=== PATIENT | male | born 1950 | race Caucasian/White ===

== ENCOUNTER 2017-01-15 16:10 | Observation (INO) | payer OTHER ==
[2017-01-15] MEDS ORDERED: NS 0.9% 1000 ML* 1,000 ML IV ONE (16:21)
[2017-01-15] MEDS ORDERED: Diltiazem IV* 5 MG/ML 5 ML VIAL (for loading dose/IV Push) (25 MG) IV SLOW PU ONE (16:29)
[2017-01-15] MEDS ORDERED: Diltiazem DRIP* 100 MG/100 ML ADDV.BAG IVPB ONE (16:29)
[2017-01-15 16:40] LABS: Hematocrit 50 % (42-52); Hemoglobin 16.7 g/dl (14.0-18.0); Mean Corpuscular HGB Conc 33 g/dl (31-36); Mean Corpuscular Hemoglobin 30 pg (27-31); Mean Corpuscular Volume 90 fL (80-94); Mean Platelet Volume 9 um3 (7.4-10.4); Red Blood Count 5.57 10^6/ul (4.0-5.4); Red Cell Distribution Width 14 % (10.5-15); White Blood Count 16.8 10^3/ul (3.5-10.8)
[2017-01-15 17:01] LABS: Troponin I 0.04 ng/mL (<0.04)
--- NOTE | 2017-01-15 17:02 | RAD ---
INDICATION: Increased heart rate COMPARISON: May 04, 2013 TECHNIQUE: An AP portable view obtained at 1641 hours is submitted. FINDINGS: Bones/Soft Tissues: There are no acute bony findings. Cardiomediastinal: The cardiomediastinal silhouette is mildly prominent. Lungs: The examination is mild expiratory. There are no focal infiltrates. The left lung base is not well evaluated due to the size of the cardiac silhouette. Pleura: There are no pleural effusions. Other: None IMPRESSION: NO ACTIVE DISEASE. SUGGEST FOLLOW-UP PA AND LATERAL VIEWS CLINICALLY INDICATED
--- NOTE | 2017-01-15 17:11 | RAD ---
INDICATION: Intracranial injury COMPARISON: May 04, 2013 TECHNIQUE: Noncontrast axial source images were acquired from the skull base to the vertex. FINDINGS: Ventricles/sulci: The ventricles and cisterns are normal in size and configuration for age. Brain parenchyma: There is no focal parenchymal finding, evidence of intracranial mass, or intracranial mass effect. Intracranial hemorrhage:None. Extra-axial spaces: There are no abnormal extra axial fluid collections or evidence of extra-axial mass. Calvarium: There is no calvarial fracture or other calvarial abnormality. Scalp: There is no evidence of scalp or extracalvarial soft tissue abnormality. Paranasal sinuses/mastoid: The paranasal sinuses and mastoid air cells are clear. Other: The bilateral basal ganglia consultations, unchanged. There are vertebral artery calcifications.. IMPRESSION: NO ACUTE INTRACRANIAL FINDINGS
[2017-01-15 17:14] LABS: Albumin 3.9 g/dL (3.2-5.2); BUN/Creatinine Ratio 13.2 (8-20); C Reactive Protein 210.95 mg/L (< 5.00); Calcium 10.4 mg/dL (8.6-10.3); EGFR African American 47.9 (>60); EGFR Non-African American 37.2 (>60); Globulin 4.4 g/dL (2-4); Potassium 4.2 mmol/L (3.5-5.0); Total Bilirubin 1.6 mg/dL (0.2-1.0); Total Protein 8.3 g/dL (6.4-8.9)
[2017-01-15] MEDS ORDERED: cefTRIAXone(*) 1 GM in NS 0.9% 50 ML* 50 ML IVPB ONE (18:25)
[2017-01-15] MEDS ORDERED: NS 0.9% 1000 ML* 2,000 ML IV ONE (18:26)
[2017-01-15] MEDS ORDERED: Ondansetron INJ* 2 MG/ML VIAL IV PRN (18:34)
[2017-01-15] MEDS ORDERED: Ipratropium 0.5MG/2.5ML NEB* 0.5 MG/2.5 ML NEB.SOLN INH PRN (18:40)
--- NOTE | 2017-01-15 18:57 | ED ---
Elio Mccall Erika, scribed for Mazin Lowe MD on 01/15/17 at 1629 . Complex/Multi-Sys Presentation - HPI Summary HPI Summary: Patient is a 66-year-old male BIBA to the ED with a CC of weakness. Patient reports that he fell in his driveway 2 hours ago while trying to get the mail. He denies dizziness, LOC, and head injury. He does note an abrasion to the left knee. Patient was unable to get his balance on the stones, and states he was feeling weak. Pt was unable to get up for 1.5 hours, and was lying outside in shorts and a T shirt. Patient states he has had weakness for the past few days. He also reports flexor tendonitis in the left foot intermittently. EMS warmed patient with heating packs to the groin, and report stable vitals en route but with A Fib in the 120s-130s - patient has a Hx A Fib. Currently, patient denies any pain, including chest pain and headache, and denies SOB and dizziness. Patient does report a fever and diarrhea for the past 2-3 days. He denies sore throat, nasal discharge, and hematuria. Patient denies recent travel or Abx use , and states no household exposure to illness. Hx HTN. PSHx left foot tendon surgery, knee surgeries. Patient reports his last tetanus was 2 years ago. FHx HTN. Patient occasionally drinks, and does not smoke or use illicit drugs. - History Of Current Complaint Time Seen by Provider: 01/15/17 16:11 Hx Obtained From: Patient, EMS Onset/Duration: Gradual Onset, Lasting Days, Still Present Timing: Constant Severity Currently: Moderate Alleviating Factor(s): Nothing Associated Signs And Symptoms: Positive: Weakness, Diarrhea, Fever, Other - Abrasion L knee. Negative: Dizziness, Headache, SOB, Chest Pain - Allergies/Home Medications Allergies/Adverse Reactions: Allergies Allergy/AdvReac Type Severity Reaction Status Date / Time No Known Allergies Allergy Verified 01/15/17 17:44 Home Medications: Home Medications Lisinopril [Lisinopril] 20 mg PO DAILY 01/15/17 [History Confirmed 01/15/17] Metoprolol Succinate XL TAB* [Toprol XL TAB*] 200 mg PO DAILY 01/15/17 [History Confirmed 03/06/17] PMH/Surg Hx/FS Hx/Imm Hx Endocrine/Hematology History: Reports: Hx Anticoagulant Therapy - pradaxa 150mg bid Cardiovascular History: Reports: Hx Hypertension Musculoskeletal History: Reports: Hx Arthritis Sensory History: Reports: Hx Contacts or Glasses Opthamlomology History: Reports: Hx Contacts or Glasses - Surgical History Surgery Procedure, Year, and Place: knee surgeries - Family History Known Family History: Positive: Hypertension - Social History Lives: With Family Alcohol Use: Occasionally Hx Substance Use: No Substance Use Type: Reports: None Hx Tobacco Use: No Smoking Status (MU): Never Smoked Tobacco Review of Systems Positive: Fever Negative: Sore Throat, Nasal Discharge Negative: Chest Pain Negative: Shortness Of Breath Positive: Diarrhea Negative: hematuria Negative: Arthralgia, Myalgia Skin: Other - abrasion L knee Positive: Weakness. Negative: Headache, Syncope All Other Systems Reviewed And Are Negative: Yes Physical Exam - Summary Physical Exam Summary: VITAL SIGNS: Reviewed. GENERAL: Patient is a well developed and nourished male who is lying comfortable in the stretcher. Patient is not in any acute respiratory distress. HEAD AND FACE: No signs of trauma. No ecchymosis, hematomas or skull depressions. No sinus tenderness. EYES: PERRLA, EOMI x 2, No injected conjunctiva, no nystagmus. No photophobia. EARS: Hearing grossly intact. Ear canals and tympanic membranes are within normal limits. MOUTH: Oropharynx within normal limits. NECK: Supple, trachea is midline, no adenopathy, no JVD, no carotid bruit, no c- spine tenderness, neck with full ROM. No meningeal signs, no Kernig's or brudzinskis signs. CHEST: Symmetric, no tenderness at palpation LUNGS: Clear to auscultation bilaterally. No wheezing or crackles. CVS: Regular rate and rhythm, S1 and S2 present, no murmurs or gallops appreciated. ABDOMEN: Soft, non-tender. No signs of distention. No rebound no guarding, and no masses palpated. Bowel sounds are normal. EXTREMITIES: FROM in all major joints, no edema, no cyanosis or clubbing. Lump in left foot. NEURO: Alert and oriented x 3. No acute neurological deficits. Speech is normal and follows commands. SKIN: Dry and warm Triage Information Reviewed: Yes Vital Signs On Initial Exam: Initial Vital Signs Temp 98.1 F 01/15/17 16:18 Pulse 138 01/15/17 16:18 Resp 20 01/15/17 16:18 BP 148/76 01/15/17 16:18 Pulse Ox 94 01/15/17 16:18 Vital Signs Reviewed: Yes Diagnostics - Vital Signs Vital Signs Temp Pulse Resp BP Pulse Ox 01/15/17 17:15 93 22 103/60 91 01/15/17 17:06 84 25 92 01/15/17 17:05 114/72 01/15/17 16:50 108 29 130/73 92 01/15/17 16:45 101 27 131/92 92 01/15/17 16:43 111 24 128/72 93 01/15/17 16:42 114 22 130/89 93 01/15/17 16:39 96 32 119/83 89 01/15/17 16:38 101 30 92 01/15/17 16:18 98.1 F 138 20 148/76 94 - Laboratory Lab Results: Lab Results 01/15/17 01/15/17 01/15/17 Range/Units 16:25 16:25 16:25 WBC 16.8 H (3.5-10.8) 10^3/ul RBC 5.57 H (4.0-5.4) 10^6/ul Hgb 16.7 (14.0-18.0) g/dl Hct 50 (42-52) % MCV 90 (80-94) fL MCH 30 (27-31) pg MCHC 33 (31-36) g/dl RDW 14 (10.5-15) % Plt Count 381 (150-450) 10^3/ul MPV 9 (7.4-10.4) um3 Neut % (Auto) 86.5 H (38-83) % Lymph % (Auto) 8.6 L (25-47) % [place] % (Auto) 4.4 (1-9) % Eos % (Auto) 0.3 (0-6) % Baso % (Auto) 0.2 (0-2) % Absolute Neuts (auto) 14.6 H (1.5-7.7) 10^3/ul Absolute Lymphs (auto) 1.5 (1.0-4.8) 10^3/ul Absolute Monos (auto) 0.7 (0-0.8) 10^3/ul Absolute Eos (auto) 0.1 (0-0.6) 10^3/ul Absolute Basos (auto) 0 (0-0.2) 10^3/ul Absolute Nucleated RBC 0 10^3/ul Nucleated RBC % 0 Sodium 131 L (133-145) mmol/L Potassium 4.2 (3.5-5.0) mmol/L Chloride 100 L (101-111) mmol/L Carbon Dioxide 16 L (22-32) mmol/L Anion Gap 15 H (2-11) mmol/L BUN 24 (6-24) mg/dL Creatinine 1.82 H (0.67-1.17) mg/dL Est GFR ( Amer) 47.9 (>60) Est GFR (Non-Af Amer) 37.2 (>60) BUN/Creatinine Ratio 13.2 (8-20) Glucose 172 H (70-100) mg/dL Lactic Acid 7.6 H* (0.5-2.0) mmol/L Calcium 10.4 H (8.6-10.3) mg/dL Total Bilirubin 1.60 H (0.2-1.0) mg/dL AST 28 (13-39) U/L ALT 25 (7-52) U/L Alkaline Phosphatase 65 (34-104) U/L Total Creatine Kinase 248 H (10-223) U/L Troponin I 0.04 H* (<0.04) ng/mL C-Reactive Protein 210.95 H (< 5.00) mg/L B-Natriuretic Peptide ( - 100) pg/mL Total Protein 8.3 (6.4-8.9) g/dL Albumin 3.9 (3.2-5.2) g/dL Globulin 4.4 H (2-4) g/dL Albumin/Globulin Ratio 0.9 L (1-3) Amylase 58 (29-103) U/L Lipase 37 (11.0-82.0) U/L // Range/Units 16:25 WBC (3.5-10.8) 10^3/ul RBC (4.0-5.4) 10^6/ul Hgb (14.0-18.0) g/dl Hct (42-52) % MCV (80-94) fL MCH (27-31) pg MCHC (31-36) g/dl RDW (10.5-15) % Plt Count (150-450) 10^3/ul MPV (7.4-10.4) um3 Neut % (Auto) (38-83) % Lymph % (Auto) (25-47) % [place] % (Auto) (1-9) % Eos % (Auto) (0-6) % Baso % (Auto) (0-2) % Absolute Neuts (auto) (1.5-7.7) 10^3/ul Absolute Lymphs (auto) (1.0-4.8) 10^3/ul Absolute Monos (auto) (0-0.8) 10^3/ul Absolute Eos (auto) (0-0.6) 10^3/ul Absolute Basos (auto) (0-0.2) 10^3/ul Absolute Nucleated RBC 10^3/ul Nucleated RBC % Sodium (133-145) mmol/L Potassium (3.5-5.0) mmol/L Chloride (101-111) mmol/L Carbon Dioxide (22-32) mmol/L Anion Gap (2-11) mmol/L BUN (6-24) mg/dL Creatinine (0.67-1.17) mg/dL Est GFR ( Amer) (>60) Est GFR (Non-Af Amer) (>60) BUN/Creatinine Ratio (8-20) Glucose (70-100) mg/dL Lactic Acid (0.5-2.0) mmol/L Calcium (8.6-10.3) mg/dL Total Bilirubin (0.2-1.0) mg/dL AST (13-39) U/L ALT (7-52) U/L Alkaline Phosphatase (34-104) U/L Total Creatine Kinase (10-223) U/L Troponin I (<0.04) ng/mL C-Reactive Protein (< 5.00) mg/L B-Natriuretic Peptide 237 H ( - 100) pg/mL Total Protein (6.4-8.9) g/dL Albumin (3.2-5.2) g/dL Globulin (2-4) g/dL Albumin/Globulin Ratio (1-3) Amylase (29-103) U/L Lipase (11.0-82.0) U/L Result Diagrams: 01/15/17 16:25 01/15/17 16:25 Lab Statement: Any lab studies that have been ordered have been reviewed, and results considered in the medical decision making process. - Radiology CXR Radiology Interpretation Completed By: Radiologist - IMPRESSION: NO ACTIVE DISEASE. SUGGEST FOLLOW-UP PA AND LATERAL VIEWS CLINICALLY INDICATED - CT CT Brain CT Interpretation Completed By: Radiologist - IMPRESSION: NO ACUTE INTRACRANIAL FINDINGS - EKG 16:18 Cardiac Rate: Tachycardia - at 157 bpm EKG Rhythm: Atrial Fibrillation - with RVR Complex Multi-Symp Course/Dx Assessment/Plan: Patient is a 66-year-old male BIBA to the ED with a CC of weakness. Patient reports that he fell in his driveway 2 hours ago while trying to get the mail. He denies dizziness, LOC, and head injury. He does note an abrasion to the left knee. Patient was unable to get his balance on the stones, and states he was feeling weak. Pt was unable to get up for 1.5 hours, and was lying outside in shorts and a T shirt. Patient states he has had weakness for the past few days. He also reports flexor tendonitis in the left foot intermittently. EMS warmed patient with heating packs to the groin, and report stable vitals en route but with A Fib in the 120s-130s - patient has a Hx A Fib. Currently, patient denies any pain, including chest pain and headache, and denies SOB and dizziness. Patient does report a fever and diarrhea for the past 2-3 days. He denies sore throat, nasal discharge, and hematuria. Patient denies recent travel or Abx use, and states no household exposure to illness. Hx HTN. PSHx left foot tendon surgery, knee surgeries. Patient reports his last tetanus was 2 years ago. FHx HTN. Patient occasionally drinks, and does not smoke or use illicit drugs. BW WNL except for WBC of 16.8 without any bands. Sodium 131, chloride 100, CO2 16, anion gap 15, creatinine 1.82, glucose 172, lactic acid 7.6, calcium of 10.4, creatine kinase of 248, troponin of 0.04, CRP of 210, and BNP 237. Head CT shows no acute intracranial pathology. CXR shows no active disease. In the ED course, the pt is A&Ox3, he does not have any complaints, however we noticed that HR was elevated at 157. EKG shows A Fib with RVR for which the pt was given cardiazem 20 mg IV. His pulse rate is fluctuating between 90-107. The pt continues to be asymptomatic. The pt also was hydrated since the pt has been having watery diarrhea for the last couple. I ordered C diff, stool culture, and fecal leukocytes, however the pt was not able to give a stool sample. At this point the pt is more hemodynamically stable; he continues to be A&Ox3. I discussed by PE and findings with Dr. Rivera who came and assessed the pt and he accepted for admission to his services. - Diagnoses Differential Diagnoses/HQI/PQRI: Cardiac Ischemia, Closed Cranial Trauma, CVA, Urinary Tract Infection, Other - Gastroenteritis, arrythmia. Provider Diagnoses: Atrial fibrillation with RVR, Diarrhea, increase troponin r/o NSTEMI, Renal insufficiency - Physician Notifications Discussed Care Of Patient With: Dr. Rivera (hospitalist) at 17:39 - agrees to admit Discharge - Discharge Plan Condition: Stable Disposition: ADMITTED TO [facility] Referrals: Ariadne North MD [Primary Care Provider] - The documentation as recorded by the Elio rivero Erika accurately reflects the service I personally performed and the decisions made by , Mazin Lowe MD.
--- NOTE | 2017-01-15 21:21 | HP ---
ADMISSION HISTORY AND PHYSICAL: DATE OF ADMISSION: PRIMARY CARE PROVIDER: Dr. North. HEATER WORKER: Dr. Reyes. HEALTHCARE PROXY: His , Francine Silver. CODE STATUS: Full. SOURCE OF INFORMATION: History obtained from interview with the patient, review of past medical records, review of Dr. Reyes's records, review of EMS records. RELIABILITY: Good. CHIEF COMPLAINT: Fall and inability to stand. HISTORY OF PRESENT ILLNESS: This is a 66-year-old man with past medical history of chronic atrial fibrillation, hypertension, hyperlipidemia, and obesity, who had been in his usual state of health until approximately 4 days prior, started to notice left foot pain, which is typical of previous episodes. He was not taking any increased NSAIDs or Tylenol for any of this pain. Three days prior to presentation, he started to notice watery diarrhea, which was approximately 2 to 3 times per day. He started eating and drinking less. He noticed no blood or mucus or dark black stools. No episode of incontinence. No nausea, vomiting, or abdominal pain. He noticed associated subjective fevers over the preceding 3 days, not associated with chills or night sweats. The night prior to admission, he did get up overnight 2 times to use the bathroom with liquidy stool. Over the same period of time, 3 days, he has had cough with scant sputum, but no associated rhinorrhea, sore throat, sick contacts, or travel. Today, he walked outside in the slippers to get the mail and had a fall on his gravel driveway. He does not remember any bethanie trip although thought his feet might have gone out from under him. He did not have any preceding lightheadedness, chest pain, shortness of breath, loss of consciousness, or head strike. He is unable to stand, which he said is unusual for him, although not completely unusual when he has this pain in the left foot. He was down for approximately 1-1/2 hours before his neighbors found him and activated the EMS. EMS noted cold exposure and the patient was confused, A and O x2, not reporting pain but having labored respirations. His blood pressure in the field was 128/80 with a heart rate of 136 and noted to have cold skin. The patient denies noting palpitations when he goes into rapid ventricular response. On presentation to the emergency room, his temperature was 98.1 with a heart rate of 112, although 157 noted on admission EKG. He received 20 mg of IV Cardizem, a liter of normal saline with control of his heart rate, and the hospitalist service was consulted for admission. In addition to the above, the patient notes a 36-pound weight loss over the last 6 weeks intentionally with diet. PAST MEDICAL HISTORY: Includes chronic atrial fibrillation, hypertension, arthritis, hyperlipidemia, obesity, possible TIA in the past in the setting of slurred speech while drinking alcohol. PAST SURGICAL HISTORY: Tonsillectomy, cyst removed from maxillary region under his jaw. MEDICATIONS: 1. Pradaxa 150 mg twice daily. 2. Metoprolol 200 mg XL daily confirmed with Dr. Reyes's records. 3. Lisinopril 20 mg daily, although records seem to indicate he may have been increased from 20 daily to 20 in the morning and 10 at night. The patient indicates he is only taking 20 mg daily. ALLERGIES: No known drug allergies. FAMILY HISTORY: Father at 90. Mother lives at 96. SOCIAL HISTORY: Two packs a day cigarettes for 3 years, quit 30 years prior. Drinks 2 alcoholic beverages per day, sometimes more on the weekend, had nothing to drink today. No illicits. He is retired, previously self employed. Has 1 cup of coffee per day, none today. He exercises, walking his dogs several miles per day and also on a stationary bike. REVIEW OF SYSTEMS: As per HPI, otherwise all other systems negative. PHYSICAL EXAMINATION GENERAL: Obese man, sitting up in bed, interactive and pleasant, in no apparent distress. VITAL SIGNS: When seen by this author, 120/77, heart rate 90, respiratory rate 18, 93% on room, T-max in the emergency room 98.1. HEENT: Oropharynx is clear. He has moist mucous membranes. He has poor dentition. LUNGS: Symmetric airway expansion with wheeze in his upper lobes. CARDIAC: He has a tachycardic rate with an irregularly irregular rhythm. ABDOMEN: Obese, soft, nontender, nondistended with positive bowel sounds. No rebound or guarding. EXTREMITIES: Warm and well perfused. 2+ peripheral pulses. Less than 2- second cap refill. Good skin turgor. No clubbing, cyanosis, or edema. Abrasion and laceration under left knee. NEUROLOGIC: He is alert and oriented x3. His cranial nerves II through XII are intact. 5/5 strength throughout. Gait not assessed. No apparent anxiety, agitation, or depression. DIAGNOSTIC STUDIES/LAB DATA: Labs reviewed, notable for sodium 131, potassium 4.2, chloride of 100, bicarbonate 16 with an anion gap of 15, BUN 24, creatinine 1.82, glucose 172, lactic acid 7.6, calcium 10.4. Bilirubin 1.6. Total CK 248, troponin 0.04. CRP 210. BNP 237. White blood cell count is 16.8 , which is 86.5% neutrophils, hemoglobin 16.7, platelets 381. Data reviewed. Chest x-ray, impression: No active disease. Followup PA and lateral suggested if clinically indicated. Brain CT, impression: No acute intracranial findings. EKG, impression: Atrial fibrillation and ventricular response at 107 beats per minute, left axis, possibly prolonged QTc at 498, although difficult to calculate on this EKG. He has late R-wave progression, no and voltage in limb leads. No ST or T-wave changes. ASSESSMENT AND PLAN: This is a 66-year-old man with past medical history of atrial fibrillation, on Pradaxa and presenting to the hospital after fall in his driveway, inability to stand with exposure to cold temperature for approximately 1.5 hours, found in the emergency room with atrial fibrillation with rapid ventricular response as well as laboratory abnormalities including leukocytosis and lactic acidosis. 1. Atrial fibrillation with rapid ventricular response with rate control after addition of 20 IV Cardizem. Heart rate is now running 90s to 100s. I will add metoprolol 25 mg q.6 hours and continue his metoprolol XL in the morning at 200 with a goal of increasing his total daily dose of metoprolol if blood pressure and heart rate tolerate. Max total daily dose of metoprolol is 400 mg per day. 2. Lactic acidosis. Multiple etiologies are possible including cold exposure with potentially shivering or in the setting of atrial fibrillation appear to favor cold exposure with such high levels. The patient denies any alcohol intoxication. However, it should be noted elevated leukocytosis and CRP with some concerns of underlying infection although none elucidated at the time of my interview or exam. We will repeat lactic acid now, give 2 additional liters of normal saline as a fluid bolus, and 1 dose of ceftriaxone empirically at this time. 3. Leukocytosis in the setting of tachycardia and lactic acidosis as a concern for sepsis. We will treat with ceftriaxone at this time. Urine is still pending. C. diff result is still pending in the setting of recent diarrhea, although frequency of diarrhea would argue against C. diff colitis. A positive result would be interpreted as reliable. Fluid as indicated above for lactic acidosis. 4. Increased troponin. Suspect demand in the setting of atrial fibrillation with rapid ventricular response. Repeat troponin now. Stress test in [address] Reyes was normal. 5. Acute kidney injury, last known was 1.2 in 2014. Total CK argues against rhabdomyolysis in the setting of cold exposure. The patient notes diarrhea with decreased p.o. intake over the last several days suggesting prerenal etiology. Two additional liters now, continue to trend tomorrow. 6. Diarrhea. Most common etiology is viral gastroenteritis leading to dehydration, weakness, fall, and atrial fibrillation with rapid ventricular response. Check C. diff and fecal lactoferrin. Hold off on treating stool unless C. diff positive. 7. Elevated blood glucose. Add on hemoglobin A1c to ED labs. 8. Wheeze on exam. Add ipratropium medications, not currently in any respiratory distress. We will also add on overnight pulse oximetry given patient's weight and potential for obstructive sleep apnea. 9. DVT prophylaxis. Pradaxa. 10. Code status is full. CC: Dr. North; Dr. Reyes * [id number]/[facility] #: [id number] [facility]
[2017-01-15] MEDS: Metoprolol Tartrate TAB* 25 MG PO SCH (22:19)
[2017-01-15] MEDS: CMCS: Dabigatran CAP(NF) 150 MG CAP PO SCH (22:19)
[2017-01-16] MEDS: Metoprolol Tartrate TAB* 25 MG PO SCH ×2 (01:42→10:00)
[2017-01-16 04:58] LABS: Hematocrit 43 % (42-52); Hemoglobin 14.4 g/dl (14.0-18.0); Mean Corpuscular HGB Conc 33 g/dl (31-36); Mean Corpuscular Hemoglobin 30 pg (27-31); Mean Corpuscular Volume 90 fL (80-94); Mean Platelet Volume 9 um3 (7.4-10.4); Red Blood Count 4.81 10^6/ul (4.0-5.4); Red Cell Distribution Width 14 % (10.5-15); White Blood Count 16.9 10^3/ul (3.5-10.8)
[2017-01-16 05:00] LABS: Add Diff/Slide Review? Slide Review Added; Comments Flag Yes
[2017-01-16 05:10] LABS: BUN/Creatinine Ratio 19.3 (8-20); Calcium 9.2 mg/dL (8.6-10.3); EGFR African American 67.6 (>60); EGFR Non-African American 52.6 (>60)
[2017-01-16] MEDS ORDERED: Pneumococcal *Vac Polyvalent 0.5 ML VIAL IM ONE (09:00)
[2017-01-16] MEDS: CMCS: Dabigatran CAP(NF) 150 MG CAP PO SCH ×2 (10:00→19:51)
[2017-01-16] MEDS: Metoprolol Succinate XL TAB* 200 MG TAB.XL PO SCH (10:01)
[2017-01-16] MEDS: Lisinopril TAB* 10 MG PO SCH (10:01)
[2017-01-16 11:02] LABS: Urine Bacteria Absent (Absent); Urine Bilirubin Negative (Negative); Urine Glucose Negative (Negative); Urine Nitrite Negative (Negative)
[2017-01-16] MEDS: Acetaminophen TAB* 325 MG PO PRN ×2 (11:11→19:52)
[2017-01-16] MEDS ORDERED: NS 0.9% 1000 ML* 1,000 ML IV SCH (13:30)
--- NOTE | 2017-01-16 14:13 | RAD ---
INDICATION: Left wrist injury COMPARISON: None TECHNIQUE: AP, lateral, and oblique views were obtained. FINDINGS: There is no acute fracture. There is advanced osteoarthritis about the radiocarpal joint/radial styloid. There is mild cystic change of multiple carpal bones. There is mild diffuse soft tissue swelling IMPRESSION: OSTEOARTHRITIS. NO ACUTE FINDINGS.
--- NOTE | 2017-01-16 14:29 | RAD ---
INDICATION: Abdominal pain COMPARISON: None TECHNIQUE: Erect and supine views of the abdomen are submitted. FINDINGS: Bones: There are no acute bony findings. Soft tissues: The soft tissues appear normal. The psoas margins are sharp. Bowel gas pattern: Nonspecific. Calcifications: There are no abnormal calcifications. Other: None IMPRESSION: NONSPECIFIC BOWEL GAS PATTERN. SUGGEST FOLLOW-UP INDICATED
--- NOTE | 2017-01-16 14:50 | PN ---
Subjective Date of Service: 01/16/17 Interval History: Left wrist in pain and swollen Watery diarrhea continues. Denies N/V or abdominal pain. Appetite still good. Strength feels 50% back to normal +cough Objective Active Medications: Acetaminophen (Tylenol Tab*) 650 mg PO Q4H PRN PRN Reason: FEVER/PAIN Last Admin: 01/16/17 11:11 Dose: 650 mg Dabigatran (Pradaxa Cap(Nf)) 150 mg PO BID [facility] Last Admin: 01/16/17 10:00 Dose: 150 mg Sodium Chloride (Ns 0.9% 1000 Ml*) 1,000 mls @ 125 mls/hr IV PER RATE [facility] Stop: 01/16/17 21:29 Last Admin: 01/16/17 14:37 Dose: 125 mls/hr Ipratropium [place] (Atrovent 0.5 Mg Neb.Danyell*) 0.5 mg INH Q4H PRN PRN Reason: SOB/WHEEZING Lisinopril (Prinivil Tab*) 20 mg PO DAILY [facility] Last Admin: 01/16/17 10:01 Dose: 20 mg Metoprolol Succinate (Toprol Xl Tab*) 200 mg PO DAILY [facility] Last Admin: 01/16/17 10:01 Dose: 200 mg Ondansetron HCl (Zofran Inj*) 4 mg IV Q4H PRN PRN Reason: NAUSEA/VOMITING Vital Signs 01/15/17 01/15/17 01/15/17 18:45 18:59 19:00 Temperature Pulse Rate 103 96 68 Respiratory 24 25 Rate Blood Pressure 114/62 119/78 (mmHg) O2 Sat by Pulse 94 92 94 Oximetry 01/15/17 01/15/17 01/15/17 19:15 19:22 19:38 Temperature Pulse Rate 105 Respiratory 25 21 Rate Blood Pressure 104/68 169/76 (mmHg) O2 Sat by Pulse 94 Oximetry 01/15/17 01/15/17 01/15/17 19:45 19:54 20:00 Temperature 97.4 F Pulse Rate 92 64 Respiratory Rate Blood Pressure 145/79 113/66 (mmHg) O2 Sat by Pulse 96 100 Oximetry 01/15/17 01/15/17 01/15/17 21:00 21:19 23:28 Temperature 98.5 F Pulse Rate 87 Respiratory 17 Rate Blood Pressure 148/76 115/75 (mmHg) O2 Sat by Pulse 95 Oximetry 01/16/17 01/16/17 01/16/17 00:00 01:42 02:43 Temperature 97.4 F Pulse Rate 151 85 92 Respiratory 16 Rate Blood Pressure 136/79 113/66 (mmHg) O2 Sat by Pulse 93 96 Oximetry 01/16/17 01/16/17 01/16/17 03:44 05:13 07:43 Temperature 98.2 F 97.6 F Pulse Rate 45 49 80 Respiratory 18 16 Rate Blood Pressure 115/72 104/76 (mmHg) O2 Sat by Pulse 98 90 99 Oximetry 01/16/17 09:12 Temperature Pulse Rate 82 Respiratory 16 Rate Blood Pressure (mmHg) O2 Sat by Pulse 93 Oximetry Oxygen Devices in Use Now: None Appearance: obese, sitting in chair, NAD Eyes: No Scleral Icterus, PERRLA Ears/Nose/Mouth/Throat: NL Teeth, Lips, Gums, Clear Oropharnyx Neck: NL Appearance and Movements; NL JVP, Trachea Midline Respiratory: Symmetrical Chest Expansion and Respiratory Effort, Clear to Auscultation Cardiovascular: NL Sounds; No Murmurs; No JVD, RRR Abdominal: - - soft, +bs, distended, NTTP Lymphatic: No Cervical Adenopathy Extremities: No Edema, No Clubbing, Cyanosis, - - left hand swollen, tenderness lateral towards ulnar Skin: No Rash or Ulcers Neurological: Alert and Oriented x 3 Result Diagrams: 01/16/17 04:25 01/16/17 04:25 Additional Lab and Data: Lab Results 01/15/17 01/15/17 01/15/17 Range/Units 16:25 16:25 16:25 WBC 16.8 H (3.5-10.8) 10^3/ul RBC 5.57 H (4.0-5.4) 10^6/ul Hgb 16.7 (14.0-18.0) g/dl Hct 50 (42-52) % MCV 90 (80-94) fL MCH 30 (27-31) pg MCHC 33 (31-36) g/dl RDW 14 (10.5-15) % Plt Count 381 (150-450) 10^3/ul MPV 9 (7.4-10.4) um3 Neut % (Auto) 86.5 H (38-83) % Lymph % (Auto) 8.6 L (25-47) % [place] % (Auto) 4.4 (1-9) % Eos % (Auto) 0.3 (0-6) % Baso % (Auto) 0.2 (0-2) % Absolute Neuts (auto) 14.6 H (1.5-7.7) 10^3/ul Absolute Lymphs (auto) 1.5 (1.0-4.8) 10^3/ul Absolute Monos (auto) 0.7 (0-0.8) 10^3/ul Absolute Eos (auto) 0.1 (0-0.6) 10^3/ul Absolute Basos (auto) 0 (0-0.2) 10^3/ul Absolute Nucleated RBC 0 10^3/ul Nucleated RBC % 0 Sodium 131 L (133-145) mmol/L Potassium 4.2 (3.5-5.0) mmol/L Chloride 100 L (101-111) mmol/L Carbon Dioxide 16 L (22-32) mmol/L Anion Gap 15 H (2-11) mmol/L BUN 24 (6-24) mg/dL Creatinine 1.82 H (0.67-1.17) mg/dL Est GFR ( Amer) 47.9 (>60) Est GFR (Non-Af Amer) 37.2 (>60) BUN/Creatinine Ratio 13.2 (8-20) Glucose 172 H (70-100) mg/dL Lactic Acid 7.6 H* (0.5-2.0) mmol/L Calcium 10.4 H (8.6-10.3) mg/dL Total Bilirubin 1.60 H (0.2-1.0) mg/dL AST 28 (13-39) U/L ALT 25 (7-52) U/L Alkaline Phosphatase 65 (34-104) U/L Total Creatine Kinase 248 H (10-223) U/L Troponin I 0.04 H* (<0.04) ng/mL C-Reactive Protein 210.95 H (< 5.00) mg/L B-Natriuretic Peptide ( - 100) pg/mL Total Protein 8.3 (6.4-8.9) g/dL Albumin 3.9 (3.2-5.2) g/dL Globulin 4.4 H (2-4) g/dL Albumin/Globulin Ratio 0.9 L (1-3) Amylase 58 (29-103) U/L Lipase 37 (11.0-82.0) U/L 01/15/17 Range/Units 16:25 WBC (3.5-10.8) 10^3/ul RBC (4.0-5.4) 10^6/ul Hgb (14.0-18.0) g/dl Hct (42-52) % MCV (80-94) fL MCH (27-31) pg MCHC (31-36) g/dl RDW (10.5-15) % Plt Count (150-450) 10^3/ul MPV (7.4-10.4) um3 Neut % (Auto) (38-83) % Lymph % (Auto) (25-47) % [place] % (Auto) (1-9) % Eos % (Auto) (0-6) % Baso % (Auto) (0-2) % Absolute Neuts (auto) (1.5-7.7) 10^3/ul Absolute Lymphs (auto) (1.0-4.8) 10^3/ul Absolute Monos (auto) (0-0.8) 10^3/ul Absolute Eos (auto) (0-0.6) 10^3/ul Absolute Basos (auto) (0-0.2) 10^3/ul Absolute Nucleated RBC 10^3/ul Nucleated RBC % Sodium (133-145) mmol/L Potassium (3.5-5.0) mmol/L Chloride (101-111) mmol/L Carbon Dioxide (22-32) mmol/L Anion Gap (2-11) mmol/L BUN (6-24) mg/dL Creatinine (0.67-1.17) mg/dL Est GFR ( Amer) (>60) Est GFR (Non-Af Amer) (>60) BUN/Creatinine Ratio (8-20) Glucose (70-100) mg/dL Lactic Acid (0.5-2.0) mmol/L Calcium (8.6-10.3) mg/dL Total Bilirubin (0.2-1.0) mg/dL AST (13-39) U/L ALT (7-52) U/L Alkaline Phosphatase (34-104) U/L Total Creatine Kinase (10-223) U/L Troponin I (<0.04) ng/mL C-Reactive Protein (< 5.00) mg/L B-Natriuretic Peptide 237 H ( - 100) pg/mL Total Protein (6.4-8.9) g/dL Albumin (3.2-5.2) g/dL Globulin (2-4) g/dL Albumin/Globulin Ratio (1-3) Amylase (29-103) U/L Lipase (11.0-82.0) U/L Microbiology and Other Data: Microbiology 01/16/17 10:10 Influenza Types A,B Antigen (NADYA) - Final Nasopharyngeal Specimen received for Influenza A/B Molecular testing Assess/Plan/Problems-Billing Assessment: 66 yo M p/w fall and inability to get up in his driveway found with lactic acidosis that resolved quickly, afib RVR, and leukocytosis with stay complicated by pain in left wrist and continued diarrhea - Patient Problems (1) Leukocytosis Comment: 1 dose CTX in ED and hold abx since that time WBC remains elevated. ?In setting of left wrist inflammation (injury vs gout?) vs continued diarrhea vs other process. Check stool for giardia (home uses well water) Monitor overnight and await final negative cultures (2) Wrist pain Comment: No fracture Injury from fall vs gout. Does note he has had pain in MTPs in past but pain was not extreme Check uric acid in AM Can consider colchicine on discharge. Doubt septic joint, no erythema, no fevers, minimal swelling (3) ESSIE (acute kidney injury) Comment: Improving additional liter NS today recheck tomorrow (4) Atrial fibrillation with RVR Comment: rate controlled c/w home dose 200mg metoprolol/day Pradaxa (5) Hypertension Comment: metoprolol and lisinopril (6) DVT prophylaxis Comment: Pradaxa
[2017-01-17 05:41] LABS: Hematocrit 41 % (42-52); Hemoglobin 13.3 g/dl (14.0-18.0); Mean Corpuscular HGB Conc 33 g/dl (31-36); Mean Corpuscular Hemoglobin 29 pg (27-31); Mean Corpuscular Volume 90 fL (80-94); Mean Platelet Volume 9 um3 (7.4-10.4); Red Blood Count 4.52 10^6/ul (4.0-5.4); Red Cell Distribution Width 14 % (10.5-15); White Blood Count 11.7 10^3/ul (3.5-10.8)
[2017-01-17 06:00] LABS: BUN/Creatinine Ratio 23.4 (8-20); Calcium 8.7 mg/dL (8.6-10.3); EGFR African American 88.4 (>60); EGFR Non-African American 68.7 (>60); Potassium 3.8 mmol/L (3.5-5.0); Uric Acid 8.8 mg/dL (4.4-7.6)
[2017-01-17 07:59] VITALS: BP 115/57
[2017-01-17] MEDS: Metoprolol Succinate XL TAB* 200 MG TAB.XL PO SCH (08:47)
[2017-01-17] MEDS: Lisinopril TAB* 10 MG PO SCH (08:47)
[2017-01-17] MEDS: CMCS: Dabigatran CAP(NF) 150 MG CAP PO SCH (08:47)
[2017-01-17] MEDS: Acetaminophen TAB* 325 MG PO PRN (08:48)
--- NOTE | 2017-01-17 09:44 | DCNOTE ---
Patient seen this morning. Says he feels better overall although bruising looks worse. Able to move L wrist although still some pain and swelling. Overnight pulse ox reviewed with patient. Diarrhea has slowed considerably. On exam, IRIR, no m/g/r, abd soft, NTND, BS+, no LE edema, L wrist with swelling , no erythema, fair ROM Discharge home today with no change in home medications. Recommend discussing sleep study with PCP.
--- NOTE | 2017-01-18 08:33 | DS ---
DISCHARGE SUMMARY: DATE OF ADMISSION: 01/15/17 DATE OF DISCHARGE: 01/17/17 PRIMARY CARE PHYSICIAN: Dr. Ariadne North. PRINCIPAL DISCHARGE DIAGNOSES: 1. Fall. 2. Left hand and wrist edema. 3. Diarrhea. SECONDARY DIAGNOSES: 1. Atrial fibrillation. 2. Hypertension. 3. Arthritis. 4. Hyperlipidemia. 5. Obesity. STUDIES DONE DURING HOSPITALIZATION: 1. Chest x-ray, impression: No active disease. 2. CT of the brain, impression: No acute intracranial findings. 3. Left wrist x-ray, impression: Osteoarthritis, no acute findings. 4. Abdomen x-ray, impression: Nonspecific bowel gas pattern. DISCHARGE MEDICATION REGIMEN: 1. Tylenol 650 mg by mouth every 4 hours as needed for pain. 2. Pradaxa 150 mg by mouth 2 times daily. 3. Metoprolol succinate 200 mg by mouth daily. 4. Lisinopril 20 mg by mouth daily. HISTORY OF PRESENT ILLNESS AND HOSPITAL SUMMARY: Please see the full history and physical by Dr. Deacon Rivera for full details. Briefly, Mr. Rhodes is a 66-year- old man with past medical history as above, who presented to the hospital with some nonspecific symptoms including loose stools, cough, and then he had suffered a fall in his driveway the day prior to admission. He was having some pain in his left foot and was unable to get up for an hour and a half. His neighbors found and activated EMS, who felt that the patient had some cold exposure, was brought to the hospital for further evaluation. He was noted to be tachycardic with AFib and RVR in the hospital, was given some IV Cardizem with improvement. In the following days, he continued to have some diarrhea, testing was sent out, which was largely negative, including a negative fecal lactoferrin, negative C. diff, and negative cryptosporidium. The patient did have some left hand swelling. There were some concerns for gout , however, this is lot more likely edematous just due to the trauma which did not result in fracture. The patient had an elevated white blood cell count, which subsequently trended down on its own without any additional antibiotic. He also underwent a overnight pulse oximetry study which showed some brief episodes of desaturation. He was encouraged to speak with his PCP further about a sleep study. The patient will be discharged home with no change in his prior medication regimen. TIME SPENT: Total time spent on this discharge 40 minutes. This is a summary of the hospitalization, please see the full medical record for further details. CC: Dr. Ariadne North* [id number]/[facility] #: [id number] [place]
== END 2017-01-17 11:21 | disposition home or self-care (01) ==
LOC: ED 16:10 → MEDTELE 18:34
PROVIDERS: ADMIT Internal Medicine; ATTEND Hospitalist
DX: I48.91 Unspecified atrial fibrillation (principal); E87.2 Acidosis; D72.829 Elevated white blood cell count, unspecified; R94.8 Abnormal results of function studies of other organs and systems; N17.9 Acute kidney failure, unspecified; R19.7 Diarrhea, unspecified; R73.09 Other abnormal glucose; R06.2 Wheezing; R60.9 Edema, unspecified; M25.432 Effusion, left wrist; M25.532 Pain in left wrist; W01.0XXA Fall on same level from slipping, tripping and stumbling without subsequent striking against object, initial encounter; Y92.89 Other specified places as the place of occurrence of the external cause; I10 Essential (primary) hypertension; E78.5 Hyperlipidemia, unspecified; E66.9 Obesity, unspecified; M19.90 Unspecified osteoarthritis, unspecified site; Z79.01 Long term (current) use of anticoagulants; Z79.899 Other long term (current) drug therapy; Z23 Encounter for immunization; R53.1 Weakness
CPT/HCPCS: 36415; 70450; 71010; 74020; 80048; 80053; 81003; 81015; 82150; 82550; 83036; 83605; 83630; 83690; 83880; 84484; 84550; 85025; 86140; 87040; 87045; 87046; 87328; 87329; 87493; 87502; 87899; 90471; 90732; 93005; 94760; 94762; 96361; 96365; 96375; 99284; A9270-GY; G0009; G0378; J0696

== ENCOUNTER 2017-12-17 09:59 | Emergency (ER) | payer OTHER | END 2017-12-17 10:38 | disposition left against medical advice (07) | LOC: UCEAST 09:59 | DX: L98.9 Disorder of the skin and subcutaneous tissue, unspecified (principal); Z53.21 Procedure and treatment not carried out due to patient leaving prior to being seen by health care provider ==

== ENCOUNTER 2022-01-14 19:00 | Inpatient (IN) ==
[2022-01-14] MEDS ORDERED: metroNIDAZOLE IV 500 MG/100ML 500 MG/100 ML BAG IVPB ONE (19:32)
[2022-01-14] MEDS ORDERED: Cefepime 2 GM in Dextrose 2 GM/50 ML BAG IV ONE (19:32)
[2022-01-14] MEDS: Lactated Ringers 1000 ml BAG IV.FLUID IV ONE ×4 (19:40→20:26)
[2022-01-14 20:02] LABS: ABS Eosinophils 0.3 10^3/ul (0-0.6); ABS Neutrophils 8.5 10^3/ul (1.5-7.7); Eosinophil % 2.6 %; Hematocrit 40 % (42-52); Hemoglobin 13.2 g/dL (14.0-18.0); Lymphocyte % 9.4 %; Mean Corpuscular HGB Conc 34 g/dL (31-36); Mean Corpuscular Hemoglobin 31 pg (27-31); Mean Corpuscular Volume 91 fL (80-94); Mean Platelet Volume 9.2 fL (7.4-10.4); Platelet Count 303 10^3/uL (150-450); Red Blood Count 4.33 10^6 /uL (4.18-5.48); Red Cell Distribution Width 15 % (10-15); White Blood Count 10.8 10^3/uL (3.5-10.8)
[2022-01-14] MEDS ORDERED: Vancomycin 2,000 MG in NS 0.9% 500 ml BAG 500 ML IVPB ONE (20:15)
[2022-01-14 20:21] LABS: Troponin I 0.01 ng/mL (<0.03)
[2022-01-14 20:59] LABS: Activated Partial Thrombo Time 63.7 seconds (26.0-38.0); INR 1.82 (0.86-1.15)
[2022-01-14 21:06] LABS: Albumin 3.5 g/dL (3.2-5.2)
[2022-01-14 21:12] LABS: Albumin/Globulin Ratio 1.1 (1-3); C Reactive Protein 54.7 mg/L (<8.01); Globulin 3.2 g/dL (2-4); Total Protein 6.7 g/dL (6.4-8.9)
[2022-01-14 21:15] LABS: Calcium 9.1 mg/dL (8.6-10.3); Potassium 5.1 mmol/L (3.5-5.0); Total Bilirubin 0.7 mg/dL (0.2-1.0)
[2022-01-14 21:22] LABS: Erythrocyte Sed Rate 52 mm/Hr (0-19)
[2022-01-14] MEDS ORDERED: Lactated Ringers 1000 ml BAG 1,000 ML IV ONE (22:02)
[2022-01-14 22:18] LABS: Urine Appearance Clear; Urine Bilirubin Negative (Negative); Urine Blood Negative (Negative); Urine Color Yellow; Urine Glucose Negative (Negative); Urine Ketones Negative (Negative); Urine Nitrite Negative (Negative); Urine Protein Negative (Negative); Urine Specific Gravity 1.011 (1.002-1.030); Urine Urobilinogen Negative (Negative)
[2022-01-14] MEDS ORDERED: Vancomycin 1,000 MG in NS 0.9% 250 ml 250 ML IVPB ONE (22:47)
[2022-01-14] MEDS ORDERED: Clindamycin 300 MG/D5W BAG 300 MG/50 ML BAG IV SCH (23:00)
[2022-01-14] MEDS ORDERED: Vancomycin per Pharmacy 1 EA NOTE FOLLOW UP SCH (23:00)
[2022-01-15] MEDS: Clindamycin 600 MG/D5W BAG IV SCH ×2 (01:18→09:17)
[2022-01-15] MEDS ORDERED: Clindamycin 300 MG/D5W BAG 300 MG/50 ML BAG IV SCH (01:30)
[2022-01-15] MEDS: NS 0.9% 1000 ml BAG 1,000 ML IV SCH ×2 (02:00→09:21)
[2022-01-15 04:23] LABS: Hematocrit 28 % (42-52); Hemoglobin 9.3 g/dL (14.0-18.0); Mean Corpuscular HGB Conc 33 g/dL (31-36); Mean Corpuscular Hemoglobin 31 pg (27-31); Mean Corpuscular Volume 92 fL (80-94); Mean Platelet Volume 8.3 fL (7.4-10.4); Platelet Count 195 10^3/uL (150-450); Red Blood Count 3.04 10^6 /uL (4.18-5.48); Red Cell Distribution Width 15 % (10-15); White Blood Count 8.1 10^3/uL (3.5-10.8)
[2022-01-15 04:24] LABS: ABS Eosinophils 0.2 10^3/ul (0-0.6); ABS Lymphocytes 0.8 10^3/ul (1.0-4.8); ABS Monocytes 0.8 10^3/ul (0-0.8); ABS Neutrophils 6.2 10^3/ul (1.5-7.7); Eosinophil % 2.6 %; Lymphocyte % 10.4 %
[2022-01-15 05:06] LABS: Calcium 6.6 mg/dL (8.6-10.3)
[2022-01-15 05:11] LABS: eGFR CKD-EPI 32.1 (>60)
[2022-01-15] MEDS ORDERED: Calcium Gluconate 2 GM in NS 0.9% 100 ml BAG 100 ML IV ONE (08:12)
[2022-01-15] MEDS: DABIGATRAN 75 MG PO SCH ×2 (08:32→22:39)
[2022-01-15 08:47] LABS: Magnesium 1.4 mg/dL (1.9-2.7)
[2022-01-15] MEDS ORDERED: Piperacillin/Tazobac ADVAN 3.375 GM in NS 0.9% 100 ml BAG 100 ML IV ONE (10:51)
[2022-01-15] MEDS ORDERED: NORMOSOL-R pH 7.4 1000 mL BAG 1,000 ML IV SCH (11:00)
[2022-01-15] MEDS ORDERED: Zosyn per Pharmacy NOTE FOLLOW UP SCH (11:00)
[2022-01-15] MEDS: Magnesium Sulf 4 GM/100 ML IV 4,000 MG/100 ML BAG IVPB ONE ×2 (11:52→15:00)
[2022-01-15] MEDS: Lactated Ringers 1000 ml BAG 1,000 ML IV ONE ×2 (12:03)
[2022-01-15] MEDS ORDERED: Lactated Ringers 1000 ml BAG 1,000 ML IV ONE (12:06)
[2022-01-15] MEDS: Linezolid 600 MG IVPREMIX(*) 600 MG/300 ML BAG IVPB SCH ×2 (13:47→21:33)
[2022-01-15] MEDS ORDERED: [UNRECOGNIZED DRUG - OTHER] IM ONE (14:00)
[2022-01-15] MEDS: [UNRECOGNIZED DRUG - OTHER] IM ONE (14:08)
[2022-01-15] MEDS: ZOSYN 3.375 GM Q8H per EXTENDED INFUSION IV SCH ×2 (18:12→22:39)
[2022-01-15] MEDS ORDERED: Vancomycin 1,250 MG in NS 0.9% 250 ml 250 ML IVPB SCH (21:30)
[2022-01-15] MEDS: Carboxymethylcellulose/Glyceri 10 ML OPHTH.GEL lubricant eye gel LEFT EYE SCH (21:32)
[2022-01-16] MEDS: ZOSYN 3.375 GM Q8H per EXTENDED INFUSION IV SCH (08:24)
[2022-01-16] MEDS: DABIGATRAN 75 MG PO SCH ×2 (08:25→19:41)
[2022-01-16 08:39] LABS: ABS Eosinophils 0.4 10^3/ul (0-0.6); ABS Monocytes 0.9 10^3/ul (0-0.8); ABS Neutrophils 7.9 10^3/ul (1.5-7.7); Eosinophil % 3.5 %; Hematocrit 38 % (42-52); Hemoglobin 12.9 g/dL (14.0-18.0); Lymphocyte % 10.2 %; Mean Corpuscular HGB Conc 34 g/dL (31-36); Mean Corpuscular Hemoglobin 31 pg (27-31); Mean Corpuscular Volume 93 fL (80-94); Mean Platelet Volume 8.4 fL (7.4-10.4); Platelet Count 272 10^3/uL (150-450); Red Blood Count 4.11 10^6 /uL (4.18-5.48); Red Cell Distribution Width 16 % (10-15); White Blood Count 10.3 10^3/uL (3.5-10.8)
[2022-01-16 10:10] LABS: Calcium 8.8 mg/dL (8.6-10.3); Magnesium 2.1 mg/dL (1.9-2.7); Potassium 5.1 mmol/L (3.5-5.0); eGFR CKD-EPI 46.3 (>60)
[2022-01-16] MEDS: [UNRECOGNIZED DRUG - OTHER] IM ONE (10:46)
[2022-01-16] MEDS ORDERED: Vancomycin 1,500 MG in NS 0.9% 250 ml 250 ML IVPB ONE (11:00)
[2022-01-16] MEDS ORDERED: Lactated Ringers 1000 ml BAG 1,000 ML IV SCH (11:00)
[2022-01-16] MEDS ORDERED: cefTRIAXone 1 gm/50 mL NS BAG 1 GM/50 ML BAG IVPB SCH (11:00)
[2022-01-16] MEDS ORDERED: Vancomycin per Pharmacy 1 EA NOTE FOLLOW UP SCH (13:00)
[2022-01-16] MEDS ORDERED: Al Hydrox/Mg Hydrox/Simet LIQ 30 ML UDC PO ONE (17:37)
[2022-01-16] MEDS: Ondansetron 4 mg VIAL 2 MG/ML 2 ml VIAL IV PRN (17:57)
[2022-01-16] MEDS: Carboxymethylcellulose/Glyceri 10 ML OPHTH.GEL lubricant eye gel LEFT EYE SCH (19:40)
[2022-01-17] MEDS ORDERED: Vancomycin 1,250 MG in NS 0.9% 250 ml 250 ML IVPB SCH
[2022-01-17] MEDS: Ondansetron 4 mg VIAL 2 MG/ML 2 ml VIAL IV PRN ×3 (00:19→19:00)
[2022-01-17] MEDS ORDERED: Lactated Ringers 1000 ml BAG 1,000 ML IV SCH ×2 (01:00→15:00)
[2022-01-17] MEDS ORDERED: Metoclopramide 5 MG/ML VIAL (10 mg) IV SLOW PU ONE ×2 (01:51→22:02)
[2022-01-17 05:09] LABS: ABS Eosinophils 0.1 10^3/ul (0-0.6); ABS Lymphocytes 0.9 10^3/ul (1.0-4.8); ABS Monocytes 0.9 10^3/ul (0-0.8); ABS Neutrophils 8.3 10^3/ul (1.5-7.7); Eosinophil % 0.7 %; Hematocrit 38 % (42-52); Hemoglobin 12.8 g/dL (14.0-18.0); Lymphocyte % 8.9 %; Mean Corpuscular HGB Conc 34 g/dL (31-36); Mean Corpuscular Hemoglobin 31 pg (27-31); Mean Corpuscular Volume 93 fL (80-94); Mean Platelet Volume 8.7 fL (7.4-10.4); Platelet Count 278 10^3/uL (150-450); Red Blood Count 4.12 10^6 /uL (4.18-5.48); Red Cell Distribution Width 15 % (10-15); White Blood Count 10.2 10^3/uL (3.5-10.8)
[2022-01-17 05:39] LABS: Calcium 8.7 mg/dL (8.6-10.3); Magnesium 1.7 mg/dL (1.9-2.7); Potassium 4.9 mmol/L (3.5-5.0); eGFR CKD-EPI 55.9 (>60)
[2022-01-17] MEDS ORDERED: Magnesium Sulfate 2 gm BAG 2 GM/50 ML BAG IVPB ONE (07:11)
[2022-01-17] MEDS: CMCS:Dabigatran 150 mg CAP (NF) PO SCH ×2 (08:46→21:20)
[2022-01-17] MEDS: Linezolid 600 MG IVPREMIX(*) 600 MG/300 ML BAG IVPB SCH ×2 (10:07→21:22)
[2022-01-17] MEDS ORDERED: Ondansetron 4 mg VIAL 2 MG/ML 2 ml VIAL IV PRN (10:43)
[2022-01-17 11:12] LABS: C Reactive Protein 134.04 mg/L (<8.01)
[2022-01-17] MEDS ORDERED: Vancomycin Trough Check NOTE FOLLOW UP ONE (21:00)
[2022-01-17] MEDS: Carboxymethylcellulose/Glyceri 10 ML OPHTH.GEL lubricant eye gel LEFT EYE SCH (21:21)
[2022-01-18] MEDS: Ondansetron 4 mg VIAL 2 MG/ML 2 ml VIAL IV PRN ×2 (03:14→11:01)
[2022-01-18 05:25] LABS: ABS Eosinophils 0.1 10^3/ul (0-0.6); ABS Monocytes 1.2 10^3/ul (0-0.8); ABS Neutrophils 9.6 10^3/ul (1.5-7.7); Eosinophil % 0.8 %; Hematocrit 36 % (42-52); Hemoglobin 12.1 g/dL (14.0-18.0); Lymphocyte % 8.3 %; Mean Corpuscular HGB Conc 34 g/dL (31-36); Mean Corpuscular Hemoglobin 31 pg (27-31); Mean Corpuscular Volume 92 fL (80-94); Mean Platelet Volume 8.4 fL (7.4-10.4); Platelet Count 286 10^3/uL (150-450); Red Cell Distribution Width 15 % (10-15)
[2022-01-18 05:59] LABS: Albumin 2.8 g/dL (3.2-5.2); Calcium 8.6 mg/dL (8.6-10.3); Globulin 2.7 g/dL (2-4); Magnesium 1.8 mg/dL (1.9-2.7); Potassium 4.5 mmol/L (3.5-5.0); Total Bilirubin 0.7 mg/dL (0.2-1.0); Total Protein 5.5 g/dL (6.4-8.9); eGFR CKD-EPI 64.5 (>60)
[2022-01-18] MEDS ORDERED: Magnesium Sulfate 2 gm BAG 2 GM/50 ML BAG IVPB ONE (06:51)
[2022-01-18] MEDS: CMCS:Dabigatran 150 mg CAP (NF) PO SCH ×2 (10:12→21:58)
[2022-01-18] MEDS: Linezolid 600 MG IVPREMIX(*) 600 MG/300 ML BAG IVPB SCH ×2 (10:20→22:13)
[2022-01-18] MEDS ORDERED: Vancomycin Trough Check NOTE FOLLOW UP ONE (11:30)
[2022-01-18] MEDS ORDERED: Iohexol 300 (CONTRAST) 10 ML SDV IV ONE (12:58)
[2022-01-18] MEDS: Carboxymethylcellulose/Glyceri 10 ML OPHTH.GEL lubricant eye gel LEFT EYE SCH (21:58)
[2022-01-18 23:41] LABS: Urine Appearance Cloudy; Urine Bilirubin Negative (Negative); Urine Blood 3+ (Negative); Urine Color Amber; Urine Glucose Negative (Negative); Urine Ketones Negative (Negative); Urine Nitrite Negative (Negative); Urine Protein 1+(30 mg/dL) (Negative); Urine Specific Gravity 1.023 (1.002-1.030); Urine Urobilinogen Negative (Negative)
[2022-01-18 23:51] LABS: Urine Bacteria Absent (Absent); Urine Red Blood Cell 3+(>10/hpf) (Absent); Urine Squamous Epithelial Cell Present (Absent); Urine White Blood Cell 3+(>20/hpf) (Absent)
[2022-01-19 05:54] LABS: Hematocrit 34 % (42-52); Hemoglobin 11.6 g/dL (14.0-18.0); Mean Corpuscular HGB Conc 34 g/dL (31-36); Mean Corpuscular Hemoglobin 31 pg (27-31); Mean Corpuscular Volume 92 fL (80-94); Mean Platelet Volume 8.3 fL (7.4-10.4); Platelet Count 253 10^3/uL (150-450); Red Blood Count 3.71 10^6 /uL (4.18-5.48); Red Cell Distribution Width 15 % (10-15); White Blood Count 10.2 10^3/uL (3.5-10.8)
[2022-01-19 06:28] LABS: Calcium 8.2 mg/dL (8.6-10.3); Magnesium 1.8 mg/dL (1.9-2.7); Potassium 4.3 mmol/L (3.5-5.0)
[2022-01-19 06:34] LABS: eGFR CKD-EPI 60.2 (>60)
[2022-01-19] MEDS ORDERED: Magnesium Sulfate 2 gm BAG 2 GM/50 ML BAG IVPB ONE (07:15)
[2022-01-19] MEDS: CMCS:Dabigatran 150 mg CAP (NF) PO SCH ×2 (08:55→21:38)
[2022-01-19] MEDS: Linezolid 600 MG IVPREMIX(*) 600 MG/300 ML BAG IVPB SCH ×2 (10:30→21:33)
[2022-01-19] MEDS ORDERED: Furosemide 20 mg/2 ml IV VIAL IV ONE (14:06)
[2022-01-19] MEDS: Carboxymethylcellulose/Glyceri 10 ML OPHTH.GEL lubricant eye gel LEFT EYE SCH (21:45)
[2022-01-20 06:56] LABS: ABS Eosinophils 0.5 10^3/ul (0-0.6); ABS Lymphocytes 1.5 10^3/ul (1.0-4.8); ABS Monocytes 0.9 10^3/ul (0-0.8); ABS Neutrophils 7.9 10^3/ul (1.5-7.7); Eosinophil % 4.6 %; Hematocrit 36 % (42-52); Hemoglobin 12.3 g/dL (14.0-18.0); Lymphocyte % 13.8 %; Mean Corpuscular HGB Conc 34 g/dL (31-36); Mean Corpuscular Hemoglobin 31 pg (27-31); Mean Corpuscular Volume 92 fL (80-94); Mean Platelet Volume 8.3 fL (7.4-10.4); Platelet Count 270 10^3/uL (150-450); Red Blood Count 3.92 10^6 /uL (4.18-5.48); Red Cell Distribution Width 15 % (10-15); White Blood Count 10.8 10^3/uL (3.5-10.8)
[2022-01-20 07:10] LABS: Calcium 8.3 mg/dL (8.6-10.3); Potassium 4.2 mmol/L (3.5-5.0); eGFR CKD-EPI 64.5 (>60)
[2022-01-20] MEDS ORDERED: Furosemide 20 mg/2 ml IV VIAL IV ONE (08:13)
[2022-01-20] MEDS: CMCS:Dabigatran 150 mg CAP (NF) PO SCH ×2 (08:37→21:24)
[2022-01-20] MEDS: Linezolid 600 MG IVPREMIX(*) 600 MG/300 ML BAG IVPB SCH (10:00)
[2022-01-20 10:52] LABS: Uric Acid 6.9 mg/dL (4.4-7.6)
[2022-01-20] MEDS ORDERED: Ondansetron ODT 4 mg TAB 4 MG TAB SL PRN (16:03)
[2022-01-20 19:47] LABS: C Reactive Protein 161.85 mg/L (<8.01)
[2022-01-20] MEDS: Carboxymethylcellulose/Glyceri 10 ML OPHTH.GEL lubricant eye gel LEFT EYE SCH (21:23)
[2022-01-21 06:50] LABS: ABS Eosinophils 0.6 10^3/ul (0-0.6); ABS Lymphocytes 1.3 10^3/ul (1.0-4.8); ABS Monocytes 0.8 10^3/ul (0-0.8); ABS Neutrophils 7.5 10^3/ul (1.5-7.7); Eosinophil % 5.7 %; Hematocrit 37 % (42-52); Hemoglobin 12.6 g/dL (14.0-18.0); Lymphocyte % 13.1 %; Mean Corpuscular HGB Conc 34 g/dL (31-36); Mean Corpuscular Hemoglobin 31 pg (27-31); Mean Corpuscular Volume 91 fL (80-94); Platelet Count 270 10^3/uL (150-450); Red Blood Count 4.04 10^6 /uL (4.18-5.48); Red Cell Distribution Width 15 % (10-15); White Blood Count 10.2 10^3/uL (3.5-10.8)
[2022-01-21 07:19] LABS: Albumin 2.6 g/dL (3.2-5.2); Albumin/Globulin Ratio 0.9 (1-3); Calcium 8.1 mg/dL (8.6-10.3); Globulin 2.8 g/dL (2-4); Magnesium 1.8 mg/dL (1.9-2.7); Potassium 4.2 mmol/L (3.5-5.0); Total Bilirubin 0.5 mg/dL (0.2-1.0); Total Protein 5.4 g/dL (6.4-8.9); eGFR CKD-EPI 78.5 (>60)
[2022-01-21] MEDS: CMCS:Dabigatran 150 mg CAP (NF) PO SCH ×2 (09:00→21:00)
[2022-01-21] MEDS ORDERED: Magnesium Sulfate 2 gm BAG 2 GM/50 ML BAG IVPB ONE (12:17)
[2022-01-21] MEDS: Carboxymethylcellulose/Glyceri 10 ML OPHTH.GEL lubricant eye gel LEFT EYE SCH (21:00)
[2022-01-22 06:51] LABS: Hematocrit 35 % (42-52); Hemoglobin 11.9 g/dL (14.0-18.0); Mean Corpuscular HGB Conc 34 g/dL (31-36); Mean Corpuscular Hemoglobin 31 pg (27-31); Mean Corpuscular Volume 91 fL (80-94); Mean Platelet Volume 8.2 fL (7.4-10.4); Platelet Count 281 10^3/uL (150-450); Red Blood Count 3.81 10^6 /uL (4.18-5.48); Red Cell Distribution Width 15 % (10-15); White Blood Count 10.2 10^3/uL (3.5-10.8)
[2022-01-22 07:09] LABS: Calcium 8.2 mg/dL (8.6-10.3); Potassium 4.4 mmol/L (3.5-5.0); eGFR CKD-EPI 86.7 (>60)
[2022-01-22] MEDS: CMCS:Dabigatran 150 mg CAP (NF) PO SCH ×2 (09:17→21:00)
[2022-01-22] MEDS: Carboxymethylcellulose/Glyceri 10 ML OPHTH.GEL lubricant eye gel LEFT EYE SCH (21:02)
[2022-01-23 05:50] LABS: ABS Lymphocytes 1.2 10^3/ul (1.0-4.8); ABS Monocytes 0.6 10^3/ul (0-0.8); Eosinophil % 0.2 %; Hematocrit 36 % (42-52); Hemoglobin 12.3 g/dL (14.0-18.0); Lymphocyte % 13.8 %; Mean Corpuscular HGB Conc 34 g/dL (31-36); Mean Corpuscular Hemoglobin 31 pg (27-31); Mean Corpuscular Volume 92 fL (80-94); Mean Platelet Volume 7.8 fL (7.4-10.4); Nucleated Red Blood Cells % 0.1; Platelet Count 279 10^3/uL (150-450); Red Blood Count 3.94 10^6 /uL (4.18-5.48); Red Cell Distribution Width 15 % (10-15); White Blood Count 8.8 10^3/uL (3.5-10.8)
[2022-01-23 06:29] LABS: Calcium 8.6 mg/dL (8.6-10.3); Potassium 4.6 mmol/L (3.5-5.0); eGFR CKD-EPI 75.8 (>60)
[2022-01-23] MEDS: CMCS:Dabigatran 150 mg CAP (NF) PO SCH ×2 (09:40→21:00)
[2022-01-23] MEDS ORDERED: Psyllium PAK PO ONE (10:06)
[2022-01-23] MEDS: Calcium Carb (TUMS) 500 mg CHEW TAB PO PRN ×2 (10:38→22:17)
[2022-01-23 14:56] LABS: Rapid COVID-19 Molecular Undetected (Undetected)
[2022-01-23] MEDS: Carboxymethylcellulose/Glyceri 10 ML OPHTH.GEL lubricant eye gel LEFT EYE SCH (21:04)
[2022-01-24] MEDS: Calcium Carb (TUMS) 500 mg CHEW TAB PO PRN (08:08)
[2022-01-24] MEDS: CMCS:Dabigatran 150 mg CAP (NF) PO SCH (08:08)
[2022-01-24 10:15] VITALS: BP 137/80
== END 2022-01-24 11:15 | DRG 871 ==
LOC: ED 19:00 → SUATTDRO 22:47 → ICU 22:47 → MED 01-15 13:40
PROVIDERS: ADMIT Hospitalist; ATTEND Internal Medicine

== ENCOUNTER 2024-07-03 17:17 | Inpatient (IN) ==
[2024-07-03 18:27] LABS: ABS Eosinophils 0.1 10^3/uL (0.0-0.5); ABS Lymphocytes 1.2 10^3/uL (1.0-4.8); ABS Monocytes 0.3 10^3/uL (0.0-1.1); ABS Neutrophils 9.7 10^3/uL (1.5-7.6); ABS Nucleated RBC 0.01 10^3/ul; Eosinophil % 1.2 %; Hematocrit 46.3 % (38-53); Hemoglobin 15.5 g/dL (13.2-16.3); Lymphocyte % 10.8 %; Mean Corpuscular Hemoglobin 32.3 pg (27-33); Mean Corpuscular Hgb Conc 33.4 g/dL (31-36); Mean Corpuscular Volume 96.7 fL (80-97); Mean Platelet Volume 8.2 fL (7.5-11.2); Nucleated Red Blood Cells % 0.1 %/100WBC (0.0-0.8); Platelet Count 204 10^3/uL (150-450); Red Blood Count 4.79 10^6/uL (4.06-5.63); Red Cell Distribution Width 16.3 % (12-17); White Blood Count 11.4 10^3/uL (3.6-10.2)
[2024-07-03 18:53] LABS: High Sens Troponin Baseline 43 pg/mL (<20)
[2024-07-03 18:56] LABS: Activated Partial Thrombo Time 48.2 seconds (26.0-38.0); INR 1.7 (0.85-1.14)
[2024-07-03 19:18] LABS: ALT 27 U/L (7-52); Albumin 3.6 g/dL (3.2-5.2); Albumin/Globulin Ratio 1.3 (1-3); Alkaline Phosphatase 86 U/L (35-149); Anion Gap 9 mmol/L (2-16); Blood Urea Nitrogen 15 mg/dL (6-24); C Reactive Protein 104.32 mg/L (<8.01); CO2 Carbon Dioxide 23 mmol/L (22-32); Calcium 8.5 mg/dL (8.6-10.3); Chloride 102 mmol/L (101-111); Creatinine, Serum 0.94 mg/dL (0.67-1.17); Globulin 2.8 g/dL (2-4); Glucose 117 mg/dL (70-100); Sodium 134 mmol/L (135-145); Total Bilirubin 1.6 mg/dL (0.2-1.0); Total Protein 6.4 g/dL (6.4-8.9); eGFR CKD-EPI 84.5 (>60)
[2024-07-03 20:21] LABS: High Sensitivity Troponin 1 Hr 62 pg/mL (<20); Potassium Redraw 4.4 mmol/L (3.5-5.0)
[2024-07-03] MEDS: Remdesivir 100 mg Vial 200 MG in NS 0.9% 250 ml 210 ML IV ONE (22:52)
[2024-07-03] MEDS: Lactated Ringers 1000 ml BAG 1,000 ML IV ONE (22:52)
[2024-07-03] MEDS: Dexamethasone IV 4 MG/ML VIAL 1 ml VIAL IV SLOW PU SCH (22:55)
[2024-07-03] MEDS: CMCS:Dabigatran 150 mg CAP (NF) PO SCH (23:38)
[2024-07-03 23:49] LABS: Urine Appearance Clear; Urine Bilirubin Negative (Negative); Urine Blood Negative (Negative); Urine Color Yellow; Urine Glucose Negative (Negative); Urine Ketones Negative (Negative); Urine Nitrite Negative (Negative); Urine Protein Trace (Negative); Urine Specific Gravity 1.025 (1.002-1.030); Urine Urobilinogen Negative (Negative); Urine pH 5.5 (5.0-8.0)
[2024-07-04] MEDS: Nystatin TOP POWDER 15 GM BTL TOPICAL SCH (00:17)
[2024-07-04 06:45] LABS: INR 1.62 (0.85-1.14)
[2024-07-04 07:15] LABS: ALT 27 U/L (7-52); Albumin 3.8 g/dL (3.2-5.2); Albumin/Globulin Ratio 1.2 (1-3); Alkaline Phosphatase 91 U/L (35-149); Anion Gap 15 mmol/L (2-16); Blood Urea Nitrogen 13 mg/dL (6-24); CO2 Carbon Dioxide 22 mmol/L (22-32); Calcium 8.5 mg/dL (8.6-10.3); Chloride 101 mmol/L (101-111); Creatinine, Serum 0.98 mg/dL (0.67-1.17); Globulin 3.1 g/dL (2-4); Glucose 162 mg/dL (70-100); Sodium 138 mmol/L (135-145); Total Bilirubin 1.2 mg/dL (0.2-1.0); Total Protein 6.9 g/dL (6.4-8.9); eGFR CKD-EPI 80.4 (>60)
[2024-07-04] MEDS: Fluticasone NASAL SPRAY 50MCG 16 gm SPRAY BTL INTRANASAL SCH (09:53)
[2024-07-04 10:15] LABS: Potassium Redraw 4.6 mmol/L (3.5-5.0)
[2024-07-04 17:06] LABS: ABS Lymphocytes 1.2 10^3/uL (1.0-4.8); ABS Monocytes 0.2 10^3/uL (0.0-1.1); ABS Neutrophils 11.4 10^3/uL (1.5-7.6); ABS Nucleated RBC 0.01 10^3/ul; Hemoglobin 14.2 g/dL (13.2-16.3); Lymphocyte % 9.2 %; Mean Corpuscular Hemoglobin 32.3 pg (27-33); Mean Corpuscular Volume 97.8 fL (80-97); Mean Platelet Volume 8.3 fL (7.5-11.2); Nucleated Red Blood Cells % 0.1 %/100WBC (0.0-0.8); Platelet Count 197 10^3/uL (150-450); Red Cell Distribution Width 16.2 % (12-17); White Blood Count 12.9 10^3/uL (3.6-10.2)
[2024-07-04] MEDS: Remdesivir 100 mg Vial 100 MG in NS 0.9% 250 ml 230 ML IV SCH (20:50)
[2024-07-05 06:57] LABS: ABS Lymphocytes 1.5 10^3/uL (1.0-4.8); ABS Monocytes 0.5 10^3/uL (0.0-1.1); ABS Neutrophils 11.8 10^3/uL (1.5-7.6); ABS Nucleated RBC 0.02 10^3/ul; Eosinophil % 0.1 %; Hematocrit 45.6 % (38-53); Hemoglobin 15.4 g/dL (13.2-16.3); Lymphocyte % 10.9 %; Mean Corpuscular Hemoglobin 32.7 pg (27-33); Mean Corpuscular Hgb Conc 33.8 g/dL (31-36); Mean Corpuscular Volume 96.7 fL (80-97); Mean Platelet Volume 8.3 fL (7.5-11.2); Nucleated Red Blood Cells % 0.1 %/100WBC (0.0-0.8); Platelet Count 224 10^3/uL (150-450); Red Blood Count 4.72 10^6/uL (4.06-5.63); Red Cell Distribution Width 16.3 % (12-17); White Blood Count 13.9 10^3/uL (3.6-10.2)
[2024-07-05 07:18] LABS: INR 1.58 (0.85-1.14)
[2024-07-05 07:27] LABS: Albumin 3.5 g/dL (3.2-5.2); Albumin/Globulin Ratio 1.3 (1-3); Calcium 8.7 mg/dL (8.6-10.3); Creatinine, Serum 0.98 mg/dL (0.67-1.17); Globulin 2.7 g/dL (2-4); Magnesium 1.9 mg/dL (1.9-2.7); Potassium 4.6 mmol/L (3.5-5.0); Total Bilirubin 0.8 mg/dL (0.2-1.0); Total Protein 6.2 g/dL (6.4-8.9); eGFR CKD-EPI 79.9 (>60)
[2024-07-05] MEDS: Pneumococcal 20-Valent Conj 0.5 ML SYR Vaccine IM ONE (09:16)
[2024-07-05 11:49] VITALS: BP 144/84
== END 2024-07-05 14:10 | disposition home or self-care (01) | DRG 871 ==
LOC: ED 17:17 → EDHOLD 17:17 → SUATTDRO 22:03 → MED 07-04 07:00
PROVIDERS: ADMIT Hospitalist; ATTEND Student in an Organized Health Care Education/Training Program

== ENCOUNTER 2024-08-06 09:09 | Observation (INO) ==
[2024-08-06 10:27] LABS: ABS Basophils 0.1 10^3/uL (0.0-0.1); ABS Lymphocytes 1.3 10^3/uL (1.0-4.8); ABS Monocytes 0.4 10^3/uL (0.0-1.1); ABS Neutrophils 16.1 10^3/uL (1.5-7.6); ABS Nucleated RBC 0.04 10^3/ul; Eosinophil % 0.1 %; Hemoglobin 15.3 g/dL (13.2-16.3); Lymphocyte % 7.4 %; Mean Corpuscular Hemoglobin 32.1 pg (27-33); Mean Corpuscular Hgb Conc 33.9 g/dL (31-36); Mean Corpuscular Volume 94.6 fL (80-97); Mean Platelet Volume 7.6 fL (7.5-11.2); Nucleated Red Blood Cells % 0.2 %/100WBC (0.0-0.8); Platelet Count 359 10^3/uL (150-450); Red Blood Count 4.76 10^6/uL (4.06-5.63); Red Cell Distribution Width 17.2 % (12-17)
[2024-08-06 10:51] LABS: High Sens Troponin Baseline 28 pg/mL (<20)
[2024-08-06] MEDS: Lactated Ringers 1000 ml BAG 1,000 ML IV ONE ×2 (11:25→16:27)
[2024-08-06 11:34] LABS: TSH Ultra Thyroid Stim Horm 3.16 mcIU/mL (0.34-5.60)
[2024-08-06 11:58] LABS: ALT 21 U/L (7-52); Albumin 3.2 g/dL (3.2-5.2); Albumin/Globulin Ratio 1.2 (1-3); Alkaline Phosphatase 126 U/L (35-149); Blood Urea Nitrogen 13 mg/dL (6-24); C Reactive Protein 111.07 mg/L (<8.01); CO2 Carbon Dioxide 23 mmol/L (22-32); Calcium 8.4 mg/dL (8.6-10.3); Chloride 103 mmol/L (101-111); Creatinine, Serum 0.89 mg/dL (0.67-1.17); Globulin 2.7 g/dL (2-4); Glucose 120 mg/dL (70-100); Sodium 135 mmol/L (135-145); Total Bilirubin 1.4 mg/dL (0.2-1.0); Total Protein 5.9 g/dL (6.4-8.9); eGFR CKD-EPI 88.8 (>60)
[2024-08-06 12:10] LABS: High Sensitivity Troponin 1 Hr 18 pg/mL (<20)
[2024-08-06 12:18] LABS: Anion Gap 9 mmol/L (2-16); Magnesium 1.7 mg/dL (1.9-2.7)
[2024-08-06 15:41] LABS: Urine Appearance Clear; Urine Bilirubin Negative (Negative); Urine Blood Negative (Negative); Urine Color Yellow; Urine Glucose Negative (Negative); Urine Ketones Negative (Negative); Urine Nitrite Negative (Negative); Urine Protein Trace (Negative); Urine Specific Gravity 1.023 (1.002-1.030); Urine Urobilinogen Negative (Negative); Urine pH 5.5 (5.0-8.0)
[2024-08-06] MEDS: cefTRIAXone 1 gm/50 mL D5W 1 GM/50 ML BAG IV ONE (16:28)
[2024-08-06 16:59] LABS: Potassium, Whole Blood 7.1 mmol/L (3.4-4.5)
[2024-08-06] MEDS ORDERED: KETOTIFEN FUMARATE BOTH EYES PRN (18:10)
[2024-08-06 18:43] LABS: Blood Urea Nitrogen 13 mg/dL (6-24); CO2 Carbon Dioxide 24 mmol/L (22-32); Calcium 8.2 mg/dL (8.6-10.3); Chloride 102 mmol/L (101-111); Creatinine, Serum 0.94 mg/dL (0.67-1.17); Glucose 124 mg/dL (70-100); Sodium 135 mmol/L (135-145)
[2024-08-06 18:44] LABS: Anion Gap 9 mmol/L (2-16)
[2024-08-06 21:14] LABS: Potassium Redraw 4.4 mmol/L (3.5-5.0)
[2024-08-06] MEDS: Nystatin TOP POWDER 15 GM BTL TOPICAL SCH (23:12)
[2024-08-06] MEDS: CMC:Dabigatran 150 mg CAP (NF) PO SCH (23:12)
[2024-08-07] MEDS: Lactated Ringers 1000 ml BAG 1,000 ML IV SCH ×2 (00:10→10:16)
[2024-08-07] MEDS: Azithromycin 500 mg/250 ml NS 500 MG/250 ML BAG IVPB ONE (02:35)
[2024-08-07 07:13] LABS: ABS Lymphocytes 1.1 10^3/uL (1.0-4.8); ABS Monocytes 0.2 10^3/uL (0.0-1.1); ABS Neutrophils 14.7 10^3/uL (1.5-7.6); Hemoglobin 13.3 g/dL (13.2-16.3); Lymphocyte % 6.8 %; Mean Corpuscular Hemoglobin 32.2 pg (27-33); Mean Corpuscular Hgb Conc 34.1 g/dL (31-36); Mean Corpuscular Volume 94.6 fL (80-97); Mean Platelet Volume 7.6 fL (7.5-11.2); Platelet Count 331 10^3/uL (150-450); Red Blood Count 4.12 10^6/uL (4.06-5.63); Red Cell Distribution Width 17.2 % (12-17)
[2024-08-07 07:33] LABS: Calcium 8.1 mg/dL (8.6-10.3); Creatinine, Serum 0.75 mg/dL (0.67-1.17); Magnesium 1.5 mg/dL (1.9-2.7); Potassium 4.5 mmol/L (3.5-5.0); eGFR CKD-EPI 93.5 (>60)
[2024-08-07 09:03] LABS: Albumin 2.9 g/dL (3.2-5.2); Albumin/Globulin Ratio 1.3 (1-3); Direct Bilirubin 0.5 mg/dL (0.03-0.18); Globulin 2.2 g/dL (2-4); Indirect Bilirubin 0.8 mg/dL (0.3-1.0); Total Bilirubin 1.3 mg/dL (0.2-1.0); Total Protein 5.1 g/dL (6.4-8.9)
[2024-08-07] MEDS: Metoprolol Succinate XL 200 mg TAB PO SCH (10:16)
[2024-08-07] MEDS: Magnesium Sulf 4 GM/100 ML IV 4,000 MG/100 ML BAG IVPB ONE (10:17)
[2024-08-07] MEDS: Calcium Carb (TUMS) 500 mg CHEW TAB PO ONE (11:34)
[2024-08-07] MEDS: cefTRIAXone 1 gm/50 mL D5W 1 GM/50 ML BAG IV SCH (18:42)
[2024-08-07] MEDS: Iohexol 350 (CONTRAST) 500 ML MDV IV ONE (21:19)
[2024-08-08 06:14] LABS: ABS Eosinophils 0.2 10^3/uL (0.0-0.5); ABS Lymphocytes 1.5 10^3/uL (1.0-4.8); ABS Monocytes 0.4 10^3/uL (0.0-1.1); ABS Neutrophils 8.9 10^3/uL (1.5-7.6); ABS Nucleated RBC 0.01 10^3/ul; Eosinophil % 1.7 %; Hematocrit 38.8 % (38-53); Hemoglobin 12.7 g/dL (13.2-16.3); Lymphocyte % 13.3 %; Mean Corpuscular Hemoglobin 31.2 pg (27-33); Mean Corpuscular Hgb Conc 32.7 g/dL (31-36); Mean Corpuscular Volume 95.3 fL (80-97); Mean Platelet Volume 7.8 fL (7.5-11.2); Nucleated Red Blood Cells % 0.1 %/100WBC (0.0-0.8); Platelet Count 342 10^3/uL (150-450); Red Blood Count 4.07 10^6/uL (4.06-5.63); Red Cell Distribution Width 17.3 % (12-17)
[2024-08-08 06:43] LABS: Creatinine, Serum 0.76 mg/dL (0.67-1.17); Potassium 4.2 mmol/L (3.5-5.0); eGFR CKD-EPI 93.2 (>60)
[2024-08-08 09:04] LABS: C Reactive Protein 149.46 mg/L (<8.01)
[2024-08-08 11:15] VITALS: BP 136/83
[2024-08-09 23:14] LABS: Anaplasma phagocytophilum Negative (Negative); B. miyamotoi PCR, B Negative (Negative); Babesia divergens/MO-1 Negative (Negative); Babesia ducani Negative (Negative); Ehrlichia chaffeensis Negative (Negative); Ehrlichia ewingii/canis Negative (Negative); Ehrlichia muris eauclairensis Negative (Negative)
== END 2024-08-08 13:06 | disposition home health service (06) ==
LOC: EDHOLD 09:09 → ED 09:09 → MEDTELE 17:30
PROVIDERS: ADMIT Hospitalist; ATTEND Hospitalist

== ENCOUNTER 2024-11-28 02:10 | Observation (INO) ==
[2024-11-28 03:00] LABS: ABS Basophils 0.1 10^3/uL (0.0-0.1); ABS Eosinophils 0.4 10^3/uL (0.0-0.5); ABS Lymphocytes 1.7 10^3/uL (1.0-4.8); ABS Monocytes 0.9 10^3/uL (0.0-1.1); ABS Neutrophils 6.5 10^3/uL (1.5-7.6); ABS Nucleated RBC 0.01 10^3/ul; Eosinophil % 3.8 %; Hematocrit 47.5 % (38-53); Hemoglobin 15.9 g/dL (13.2-16.3); Lymphocyte % 17.5 %; Mean Corpuscular Hemoglobin 32.4 pg (27-33); Mean Corpuscular Hgb Conc 33.6 g/dL (31-36); Mean Corpuscular Volume 96.6 fL (80-97); Mean Platelet Volume 9.4 fL (7.5-11.2); Nucleated Red Blood Cells % 0.1 %/100WBC (0.0-0.8); Platelet Count 210 10^3/uL (150-450); Red Blood Count 4.92 10^6/uL (4.06-5.63); White Blood Count 9.4 10^3/uL (3.6-10.2)
[2024-11-28 03:33] LABS: Albumin 3.7 g/dL (3.5-5.7); Albumin/Globulin Ratio 1.2 (1-3); Creatinine, Serum 0.89 mg/dL (0.67-1.17); Globulin 3.1 g/dL (2-4); Potassium 3.7 mmol/L (3.5-5.0); Total Bilirubin 1.7 mg/dL (0.2-1.0); Total Protein 6.8 g/dL (6.4-8.9); eGFR CKD-EPI 88.8 (>60)
[2024-11-28] MEDS: Tetracaine 0.5% OPTH.SOL 4 ML BTL RIGHT EYE ONE (04:58)
[2024-11-28] MEDS ORDERED: Al Hydrox/Mg Hydrox/Simet LIQ 30 ML UDC PO PRN (05:38)
[2024-11-28] MEDS ORDERED: Polyethylene Glycol 3350 17 GM PACKET PO PRN (05:38)
[2024-11-28 05:39] LABS: High Sensitivity Troponin 1 Hr 18 pg/mL (<20)
[2024-11-28] MEDS ORDERED: acetaZOLAMIDE IV 500 MG in NS 0.9% 50 ML 50 ML IVPB SCH (06:00)
[2024-11-28] MEDS: Furosemide 40 mg/4 ml IV VIAL IV SLOW PU SCH (06:28)
[2024-11-28] MEDS: CMCS: Brimonidine P 0.1%(NF) 1 DROP BTL RIGHT EYE SCH (08:14)
[2024-11-28] MEDS: Timolol 0.5% OPTH.SOL BTL RIGHT EYE SCH (08:15)
[2024-11-28] MEDS: CMCS: Dabigatran 150 mg CAP (NF) PO SCH (08:16)
[2024-11-28] MEDS: Fluticasone NASAL SPRAY 50MCG 16 gm SPRAY BTL INTRANASAL SCH (08:17)
[2024-11-28] MEDS: Nystatin TOP POWDER 15 GM BTL TOPICAL SCH (08:18)
[2024-11-28] MEDS: Sulfur Hexaflouride MICROSPHR 25 MG VIAL IV PRN (14:39)
[2024-11-28] MEDS: Furosemide 40 mg/4 ml IV VIAL IV SLOW PU ONE (16:54)
[2024-11-28 19:08] LABS: Urine Appearance Clear; Urine Bilirubin Negative (Negative); Urine Blood Negative (Negative); Urine Color Light-Yellow; Urine Glucose Negative (Negative); Urine Ketones Negative (Negative); Urine Nitrite Negative (Negative); Urine Protein Negative (Negative); Urine Specific Gravity 1.006 (1.002-1.030); Urine Urobilinogen 1+ (Negative)
[2024-11-29 06:40] LABS: Anion Gap 8 mmol/L (2-16); Blood Urea Nitrogen 15 mg/dL (6-24); CO2 Carbon Dioxide 25 mmol/L (22-32); Chloride 103 mmol/L (101-111); Creatinine, Serum 0.99 mg/dL (0.67-1.17); Glucose 96 mg/dL (70-100); Sodium 136 mmol/L (135-145); eGFR CKD-EPI 78.9 (>60)
[2024-11-29 07:51] LABS: ABS Basophils 0.1 10^3/uL (0.0-0.1); ABS Eosinophils 0.5 10^3/uL (0.0-0.5); ABS Monocytes 1.1 10^3/uL (0.0-1.1); ABS Neutrophils 6.7 10^3/uL (1.5-7.6); ABS Nucleated RBC 0.01 10^3/ul; Eosinophil % 4.9 %; Hemoglobin 15.7 g/dL (13.2-16.3); Mean Corpuscular Hemoglobin 32.2 pg (27-33); Mean Corpuscular Hgb Conc 33.5 g/dL (31-36); Mean Corpuscular Volume 96.3 fL (80-97); Mean Platelet Volume 8.8 fL (7.5-11.2); Nucleated Red Blood Cells % 0.1 %/100WBC (0.0-0.8); Platelet Count 237 10^3/uL (150-450); Red Blood Count 4.88 10^6/uL (4.06-5.63); Red Cell Distribution Width 15.9 % (12-17); White Blood Count 10.3 10^3/uL (3.6-10.2)
[2024-11-29] MEDS: Furosemide 40 mg/4 ml IV VIAL IV SLOW PU ONE (08:38)
[2024-11-29] MEDS: Furosemide 40 mg/4 ml IV VIAL IV ONE (15:23)
[2024-11-30 06:09] LABS: Calcium 8.7 mg/dL (8.6-10.3); Creatinine, Serum 0.94 mg/dL (0.67-1.17); Magnesium 1.9 mg/dL (1.9-2.7)
[2024-11-30 06:11] LABS: ABS Eosinophils 0.5 10^3/uL (0.0-0.5); ABS Lymphocytes 2.3 10^3/uL (1.0-4.8); ABS Monocytes 1.1 10^3/uL (0.0-1.1); ABS Neutrophils 5.9 10^3/uL (1.5-7.6); ABS Nucleated RBC 0.01 10^3/ul; Eosinophil % 5.4 %; Hematocrit 48.9 % (38-53); Hemoglobin 16.4 g/dL (13.2-16.3); Lymphocyte % 23.8 %; Mean Corpuscular Hemoglobin 32.6 pg (27-33); Mean Corpuscular Hgb Conc 33.5 g/dL (31-36); Mean Corpuscular Volume 97.4 fL (80-97); Mean Platelet Volume 8.9 fL (7.5-11.2); Nucleated Red Blood Cells % 0.1 %/100WBC (0.0-0.8); Platelet Count 229 10^3/uL (150-450); Red Blood Count 5.02 10^6/uL (4.06-5.63); Red Cell Distribution Width 16.1 % (12-17); White Blood Count 9.8 10^3/uL (3.6-10.2)
[2024-11-30] MEDS: Bumetanide IV 0.25 MG/ML 4 ml VIAL (1 mg) IV ONE (08:59)
[2024-11-30] MEDS: Bumetanide IV 0.25 MG/ML 4 ml VIAL (1 mg) IV SLOW PU ONE (15:32)
[2024-12-01 06:21] LABS: ABS Basophils 0.1 10^3/uL (0.0-0.1); ABS Eosinophils 0.5 10^3/uL (0.0-0.5); ABS Lymphocytes 2.5 10^3/uL (1.0-4.8); ABS Monocytes 1.2 10^3/uL (0.0-1.1); ABS Nucleated RBC 0.02 10^3/ul; Eosinophil % 4.9 %; Hematocrit 46.7 % (38-53); Hemoglobin 15.8 g/dL (13.2-16.3); Lymphocyte % 24.4 %; Mean Corpuscular Hemoglobin 32.3 pg (27-33); Mean Corpuscular Hgb Conc 33.8 g/dL (31-36); Mean Corpuscular Volume 95.5 fL (80-97); Mean Platelet Volume 8.3 fL (7.5-11.2); Nucleated Red Blood Cells % 0.2 %/100WBC (0.0-0.8); Platelet Count 288 10^3/uL (150-450); Red Blood Count 4.89 10^6/uL (4.06-5.63); Red Cell Distribution Width 15.7 % (12-17); White Blood Count 10.4 10^3/uL (3.6-10.2)
[2024-12-01] MEDS: Bumetanide IV 0.25 MG/ML 4 ml VIAL (1 mg) IV ONE (09:40)
[2024-12-01 12:37] LABS: Calcium 8.9 mg/dL (8.6-10.3); Creatinine, Serum 1.04 mg/dL (0.67-1.17); Potassium 3.7 mmol/L (3.5-5.0); eGFR CKD-EPI 74.4 (>60)
[2024-12-01 12:38] VITALS: BP 131/78
== END 2024-12-01 01:51 | disposition home or self-care (01) ==
LOC: ED 02:10 → EDHOLD 02:10 → SUATTDRO 05:38 → MEDTELE 16:30
PROVIDERS: ADMIT Internal Medicine; ATTEND Student in an Organized Health Care Education/Training Program